=== PATIENT | male | born 1940 | race Hispanic/Latino ===

== ENCOUNTER 2024-02-20 06:18 | Day surgery (SDC) | payer OTHER, MEDICARE ==
[2024-02-20] VITALS (10 sets, daily range): BP systolic 125–164; BP diastolic 57–75; PULSE 81–94; RESP 15–18
[~2024-02-20] VITALS: Ht 172.7 cm; Wt 98.0 kg
[2024-02-20] MEDS ORDERED: CARB-336 PO (07:02)
[2024-02-20] MEDS ORDERED: FERR-63 PO (07:02)
[2024-02-20] MEDS ORDERED: LOSA25TA41 PO (07:02)
[2024-02-20] MEDS ORDERED: ALLO100T PO (07:02)
[2024-02-20] MEDS ORDERED: MEMA5TAB16 PO (07:02)
[2024-02-20] MEDS ORDERED: TORS20TA4 PO (07:09)
[2024-02-20] MEDS ORDERED: RELU120T PO (07:09)
[2024-02-20] MEDS ORDERED: INSU100I54 SQ (07:09)
[2024-02-20] MEDS ORDERED: DAPA10TA PO (07:09)
[2024-02-20] MEDS ORDERED: PRIMIDONE PO (07:09)
[2024-02-20] MEDS ORDERED: ATOR40TA69 PO (07:09)
[2024-02-20] MEDS ORDERED: CALCIUM VITAMIN PO (07:09)
[2024-02-20] MEDS ORDERED: FLUT1BLS3 IH (07:11)
[2024-02-20] MEDS ORDERED: LEVO50CA4 PO (07:11)
[2024-02-20] MEDS ORDERED: FAMO40TA7 PO (07:11)
[2024-02-20] MEDS ORDERED: DOCU100C33 PO (07:11)
[2024-02-20] MEDS: 0.9%NACL 1000ML 1,000 ML IV ONE (07:14)
[2024-02-20] MEDS ORDERED: PROPOFOL 10 MG/ML 20ML VIAL IV ONE (07:51)
[2024-02-20] MEDS ORDERED: EPHEDRINE SULFATE 50 MG/ML AMPULE ONE (08:07)
== END 2024-02-20 09:15 | disposition home or self-care (01) ==
LOC: ENDO 06:18 → DAH 06:18 → ENDO 09:15
PROVIDERS: ATTEND Internal Medicine Gastroenterology
DX: R93.3 Abnormal findings on diagnostic imaging of other parts of digestive tract (principal); D17.5 Benign lipomatous neoplasm of intra-abdominal organs; K31.89 Other diseases of stomach and duodenum; K31.7 Polyp of stomach and duodenum; R12 Heartburn; D64.9 Anemia, unspecified; K44.9 Diaphragmatic hernia without obstruction or gangrene; I10 Essential (primary) hypertension; I25.10 Atherosclerotic heart disease of native coronary artery without angina pectoris; E66.9 Obesity, unspecified; E03.9 Hypothyroidism, unspecified; E11.9 Type 2 diabetes mellitus without complications; E78.5 Hyperlipidemia, unspecified; G30.9 Alzheimer's disease, unspecified; K42.9 Umbilical hernia without obstruction or gangrene; Z98.49 Cataract extraction status, unspecified eye; Z98.890 Other specified postprocedural states; Z79.890 Hormone replacement therapy; Z79.4 Long term (current) use of insulin; Z68.34 Body mass index [BMI] 34.0-34.9, adult
CPT/HCPCS: 43251; 82948 ×2; 43239; J7030 ×2; J3490; J2704; A4620; A4215 ×2; A4223; A7002; A4222; A4221; A4663; A4606